=== PATIENT | male | born 1960 | race Asian ===

== ENCOUNTER 2023-02-25 08:13 | Emergency (ER) | payer SELFPAY ==
[~2023-02-25] VITALS: Ht 172.7 cm; Wt 65.8 kg
[2023-02-25 08:24] VITALS: BP_SYST 110; PULSE 69; RESP 16; TEMP 97.7; O2SAT 99
[2023-02-25] MEDS ORDERED: OXYCODONE/ACETAMINOPHEN *10*mg/325 mg TABLET PO ONE (08:30)
[2023-02-25 08:47] LABS: BASOPHILS # (AUTO) 0.1 K/uL (0.0-0.2); BASOPHILS % (AUTO) 0.8 % (0.0-2.0); EOSINOPHILS # (AUTO) 0.2 K/uL (0.0-0.4); EOSINOPHILS % (AUTO) 3.1 % (0.0-4.0); HEMATOCRIT 35.2 % (36-54); HEMOGLOBIN 11.7 g/dL (14.0-18.0); LYMPHOCYTES # (AUTO) 1.3 K/uL (1.0-5.5); LYMPHOCYTES % (AUTO) 17.1 % (20.5-51.5); MEAN CORPUSCULAR HEMOGLOBIN 29 pg (27-31); MEAN CORPUSCULAR HGB CONC 33 % (32-36); MEAN CORPUSCULAR VOLUME 88 fL (79.0-98.0); MONOCYTES # (AUTO) 0.9 K/uL (0.0-1.0); MONOCYTES % (AUTO) 12.4 % (1.7-9.3); NEUTROPHILS # (AUTO) 5.1 K/uL (1.8-7.7); NEUTROPHILS % (AUTO) 66.6 % (40.0-70.0); PLATELET COUNT (AUTO) 180 K/uL (130-430); RED CELL DISTRIBUTION WIDTH 16.5 % (9.0-15.0); WHITE BLOOD COUNT (AUTO) 7.6 K/uL (4.8-10.8)
[2023-02-25 08:57] LABS: ERYTHROCYTE SEDIMENTATION RATE 16 MM/HR (0-15)
[2023-02-25 09:00] LABS: CALCIUM 8.3 mg/dL (8.4-11.0); CREATININE 0.94 mg/dL (0.55-1.30); POTASSIUM 3.5 mmol/L (3.5-5.1)
[2023-02-25 09:14] LABS: INR 1.2 (0.80-1.20); PROTHROMBIN TIME 12.8 SECS (9.5-12.5)
[2023-02-25 09:34] LABS: ALBUMIN 2.2 g/dL (3.4-4.8); TOTAL BILIRUBIN 1.4 mg/dL (0.0-1.0); TOTAL PROTEIN, SERUM 5.9 g/dL (6.4-8.3); URIC ACID 5.6 mg/dL (2.4-7.0)
[2023-02-25] MEDS ORDERED: IBUP-1971 PO (10:05)
[2023-02-25] MEDS ORDERED: TRAM50TA2 PO (10:05)
[2023-02-25 10:38] VITALS: BP_SYST 110; PULSE 74; RESP 15; TEMP 98.2; O2SAT 95
== END 2023-02-25 10:36 | disposition home or self-care (01) ==
LOC: SED 08:13
DX: I73.9 Peripheral vascular disease, unspecified (principal); M79.671 Pain in right foot; Z79.899 Other long term (current) drug therapy
CPT/HCPCS: 36415; 80053; 82140; 84550; 85025; 85610-TC; 85651-TC; 85730-TC; 99284

== ENCOUNTER 2023-03-02 19:28 | Emergency (ER) | payer MEDICAID ==
[~2023-03-02] VITALS: Ht 172.7 cm; Wt 64.4 kg
[~2023-03-02 19:28] MED LIST: IBUP-1971 PO; TRAM50TA2 PO
[2023-03-02 19:35] VITALS: BP_SYST 111; PULSE 82; RESP 16; TEMP 97.9; O2SAT 95
[2023-03-02 20:30] LABS: BASOPHILS # (AUTO) 0.1 K/uL (0.0-0.2); BASOPHILS % (AUTO) 0.9 % (0.0-2.0); EOSINOPHILS # (AUTO) 0.4 K/uL (0.0-0.4); EOSINOPHILS % (AUTO) 6.2 % (0.0-4.0); HEMATOCRIT 36.6 % (36-54); HEMOGLOBIN 11.9 g/dL (14.0-18.0); LYMPHOCYTES # (AUTO) 1.7 K/uL (1.0-5.5); LYMPHOCYTES % (AUTO) 24.3 % (20.5-51.5); MEAN CORPUSCULAR HEMOGLOBIN 29 pg (27-31); MEAN CORPUSCULAR HGB CONC 33 % (32-36); MEAN CORPUSCULAR VOLUME 88 fL (79.0-98.0); MONOCYTES # (AUTO) 0.9 K/uL (0.0-1.0); MONOCYTES % (AUTO) 12.3 % (1.7-9.3); NEUTROPHILS # (AUTO) 3.9 K/uL (1.8-7.7); NEUTROPHILS % (AUTO) 56.3 % (40.0-70.0); PLATELET COUNT (AUTO) 237 K/uL (130-430); RED BLOOD CELL COUNT(AUTO) 4.17 MIL/uL (4.2-6.2); RED CELL DISTRIBUTION WIDTH 15.8 % (9.0-15.0)
[2023-03-02 20:45] LABS: ALANINE AMINOTRANSFERASE 41 U/L (12-78); ALBUMIN 2.2 g/dL (3.4-4.8); ANION GAP 8 (5-15); ASPARTATE AMINOTRANSFERASE 39 U/L (10-37); CALCIUM 8.5 mg/dL (8.4-11.0); CARBON DIOXIDE 24 mmol/L (23-29); CHLORIDE 107 mmol/L (98-107); CREATININE 0.82 mg/dL (0.55-1.30); GFR AFRICAN AMERICAN 122 mL/min (>90); GFR NON AFRICAN-AMERICAN 101 mL/min (>90); POTASSIUM 3.8 mmol/L (3.5-5.1); SODIUM SERUM 139 mmol/L (136-145); TOTAL BILIRUBIN 0.6 mg/dL (0.0-1.0); TOTAL PROTEIN, SERUM 6.5 g/dL (6.4-8.3); UREA NITROGEN, BLOOD 12 mg/dL (8-21)
[2023-03-02 20:46] LABS: INR 1.2 (0.80-1.20)
[2023-03-02 20:51] LABS: GLUCOSE 124 mg/dL (74-106)
[2023-03-02] MEDS ORDERED: NACL 0.9% 1,000 ML IV ONE (21:30)
[2023-03-02] MEDS ORDERED: iohexoL 350 mgI/mL, 100 ML INFUS..BTL IV ONE (21:31)
[2023-03-02 23:35] VITALS: BP_SYST 124; PULSE 70; RESP 20; TEMP 98.1; O2SAT 95
== END 2023-03-02 23:44 | disposition home or self-care (01) ==
LOC: SED 19:28
DX: R60.0 Localized edema (principal); I10 Essential (primary) hypertension; Z88.1 Allergy status to other antibiotic agents; Z87.19 Personal history of other diseases of the digestive system; Z79.899 Other long term (current) drug therapy
CPT/HCPCS: 99285; 93970; 96360; 71275; 71045; 80053; 82140; 83880; 85025; 85379; 85610; 85730; 84484; 36415; 93005; 76376; Q9967; J7030